=== PATIENT | female | born 1995 | race Caucasian/White ===

== ENCOUNTER → 2020-06-18 | Outpatient (CLI) | payer BC ==
--- NOTE | 2020-06-18 16:29 | US ---
EXAMINATION TYPE: US transvaginal DATE OF EXAM: 06/18/2020 COMPARISON: NONE CLINICAL HISTORY: N83 Noninflammatory disorders of ovary, fallopian. Patient states doctor felt possi ble cyst on left ovary TECHNIQUE: Transvaginal (TV). Date of LMP: 06/16/2020, G0 EXAM MEASUREMENTS: Uterus: 6.4 x 3.4 x 2.9 cm Endometrial Stripe: 0.2 cm Right Ovary: 3.4 x 1.9 x 1.6 cm Left Ovary: 3.0 x 1.3 x 1.6 cm 1. Uterus: Anteverted. Normal. Fluid within the endocervical canal. 2. Endometrium: Normal. 3. Right Ovary: Normal. Follicular changes. 4. Left Ovary: Normal. Follicular changes. 5. Bilateral Adnexa: Normal. 6. Posterior cul-de-sac: No free fluid. IMPRESSION: 1. Normal ovaries bilaterally. No evidence of ovarian cyst. 2. Normal uterus. 3. No free fluid.
== END | disposition home or self-care (01) ==
LOC: RADUSWWP 14:40
PROVIDERS: ATTEND Obstetrics & Gynecology
DX: N83.9 Noninflammatory disorder of ovary, fallopian tube and broad ligament, unspecified (principal)
CPT/HCPCS: 76830

== ENCOUNTER → 2020-07-24 | Outpatient (CLI) | payer BC | END | disposition home or self-care (01) | LOC: LABWHC1 12:38 | PROVIDERS: ATTEND Family Medicine | DX: Z20.828 Contact with and (suspected) exposure to other viral communicable diseases (principal) | CPT/HCPCS: U0003; C9803 ==